=== PATIENT | female | born 1930 | race Caucasian/White ===

== ENCOUNTER → 2017-07-06 | Outpatient (CLI) | payer MEDICARE ==
[2016-08-27 13:08] VITALS: BMI 45.8
[~2017-07-06] MED LIST: AMLO-101 PO; AMLO-99 PO; ASPI-757 PO; CALC-649 PO; CALC600T63 PO; DOCU-202 PO; FISH OIL 1,2001 CAP PO; FURO-45 PO; FURO-47 PO; IBUP1TAB90 PO; LEV100 PO; LEVO-3 PO; LOR5/325 PO; MAX75 PO; MAXIDE; METO-253 PO; METO50TA19 PO; MULT-865 PO; Metoprolol; NAPR-1043 PO; NAPR220C12 PO; OLME1TAB73 PO; OLME40TA28 PO; OMEP-218 PO; OMEP40CA48 PO; ONDA4TAB PO; OXYGENHOME INH; PANT40TA63 PO; PER PO; SPIR25TA76 PO; SPIR25TA78 PO; SULF-198 PO; TELM1TAB18 PO; WARF2TAB74 PO; [UNRECOGNIZED DRUG - CODE] PO; [UNRECOGNIZED DRUG - OTHER] PO
[2017-07-06 15:33] LABS: PLATELET COUNT, AUTOMATED 250 K/uL (150-450)
== END ==
LOC: LAB 15:11
PROVIDERS: ATTEND Family Medicine
DX: I10 Essential (primary) hypertension (principal); E03.9 Hypothyroidism, unspecified
CPT/HCPCS: 36415; 82040; 82247; 82310; 82374; 82435; 82565; 82947; 84075; 84132; 84155; 84295; 84443; 84450; 84460; 84520; 85025

== ENCOUNTER → 2018-01-26 | Outpatient (CLI) | payer MEDICARE ==
[2016-08-27 13:08] VITALS: BMI 45.8
[~2018-01-26] MED LIST changes: +AMLO-111 PO; +AMLO-113 PO; -AMLO-99 PO; +FLUT16SP19 NS; +LATA2.5D7 OP; +LEVO75TA73 PO; +LEVO88TA45 PO; -SPIR25TA78 PO; +SPIR25TA80 PO; +VIT1CAPS9 PO
[2018-01-26 15:01] LABS: PLATELET COUNT, AUTOMATED 288 K/uL (150-450)
== END ==
LOC: LAB 14:28
PROVIDERS: ATTEND Family Medicine
DX: E03.9 Hypothyroidism, unspecified (principal); I10 Essential (primary) hypertension
CPT/HCPCS: 36415; 82040; 82247; 82310; 82374; 82435; 82465; 82565; 82947; 83718; 84075; 84132; 84155; 84295; 84443; 84450; 84460; 84478; 84520; 85025

== ENCOUNTER → 2018-04-20 | Outpatient (CLI) | payer MEDICARE ==
[2016-08-27 13:08] VITALS: BMI 45.8
== END ==
LOC: LAB 15:22
PROVIDERS: ATTEND Family Medicine
DX: E03.9 Hypothyroidism, unspecified (principal); G62.9 Polyneuropathy, unspecified
CPT/HCPCS: 36415; 82607; 84443

== ENCOUNTER → 2018-10-03 | Outpatient (CLI) | payer MEDICARE ==
[2016-08-27 13:08] VITALS: BMI 45.8
[~2018-10-03] MED LIST changes: -AMLO-111 PO; -AMLO-113 PO; +AMLO-125 PO; +AMLO-127 PO; +LEVO50TA86 PO
== END ==
LOC: RESP 10:03
PROVIDERS: ATTEND Nurse Practitioner Family
DX: I50.9 Heart failure, unspecified (principal); R09.02 Hypoxemia
CPT/HCPCS: 94060; 94726; 94729